=== PATIENT | female | born 2000 | race African-American/Black ===

== ENCOUNTER 2023-11-11 03:48 | Emergency (ER) | payer SELFPAY ==
[~2023-11-11] VITALS: Ht 172.7 cm; Wt 79.5 kg
[2023-11-11 04:00] VITALS: TEMP 97.8
[2023-11-11] MEDS ORDERED: NALOXONE 0.4 MG IV ONE (04:00)
[2023-11-11] MEDS ORDERED: NALOXONE IV ONE (04:00)
[2023-11-11] MEDS ORDERED: Ondansetron 4 MG/2 ML VIAL IV ONE (04:15)
[2023-11-11] MEDS ORDERED: NS 1,000 ML IV ONE ×2 (04:15→05:30)
[2023-11-11 04:22] LABS: BASO % 0.2 % (0.0-2.0); EOS # 0.4 K/mm3 (0.0-0.7); EOS % 3.1 % (0.0-4.0); GRAN # 7.6 K/mm3 (1.4-6.5); GRAN % 61.5 % (42.2-75.2); HEMATOCRIT 42.1 % (37.0-47.0); HEMOGLOBIN 14.1 g/dl (12.5-16.0); LYMPH # 3.5 K/mm3 (1.2-3.4); LYMPH % 28.3 % (20.0-51.0); MEAN CELL VOLUME 88 fl (80.0-100.0); MEAN CORPUSCULAR HEMOGLOBIN 30 pg (27-31); MEAN CORPUSCULAR HGB CONC 34 g/dl (33.0-37.0); MEAN PLATELET VOLUME 9.1 fl (7.4-10.4); MONO # 0.8 K/mm3 (0.1-0.6); MONO % 6.8 % (1.7-9.3); PLATELET COUNT 409 K/mm3 (130-400); RED BLOOD COUNT 4.76 M/mm3 (4.10-5.30); REDCELL DISTRIBUTION WIDTH-CV 13.2 % (11.5-14.5)
[2023-11-11 04:36] LABS: ALANINE AMINOTRANSFERASE 8 U/L (0-55); ALBUMIN 3.9 g/dL (3.5-5.0); ALKALINE PHOSPHATASE 63 U/L (40-150); ANION GAP 12 mmol/L (7-16); AST,SGOT 15 U/L (5-34); BLOOD UREA NITROGEN 7 mg/dL (7-19); CHLORIDE 110 mEq/L (98-107); CREATININE, serum 0.77 mg/dL (0.57-1.11); GLUCOSE 100 mg/dL (70-99); POTASSIUM 3.6 mEq/L (3.5-4.5); SODIUM 141 mEq/L (136-145); TOTAL PROTEIN 7.6 g/dl (6.2-8.1)
[2023-11-11 04:56] LABS: SALICYLATE < 5.0 mg/dL (15.0-30.0)
[2023-11-11 04:59] LABS: COLLECTION METHOD CLEAN CATCH
[2023-11-11] MEDS ORDERED: Naloxone 0.4 MG/ML VIAL IV ONE (05:00)
[2023-11-11 05:07] LABS: PH 6.5 (5.0-8.5); URINE APPEARANCE CLEAR (CLEAR/HAZY); URINE BLOOD NEGATIVE (NEGATIVE); URINE COLOR YELLOW (YELLOW); URINE GLUCOSE NEGATIVE (NEGATIVE); URINE KETONE NEGATIVE (NEGATIVE); URINE NITRATE NEGATIVE (NEGATIVE); URINE PROTEIN(semi-quant) NEGATIVE (NEGATIVE); URINE UROBILINOGEN 0.2 E.U/dL (0.2-1.0)
[2023-11-11 05:11] LABS: ALCOHOL(ethanol),MEDICAL 142 mg/dL (0-10); BILIRUBIN,TOTAL 0.5 mg/dL (0.2-1.2)
[2023-11-11 05:20] LABS: TRICYCLIC ANTIDEPRESS URINE NEGATIVE (NEGATIVE)
[2023-11-11 07:30] VITALS: BP 97/60; PULSE 78
== END 2023-11-11 07:45 | disposition home or self-care (01) ==
LOC: COL.ER 03:48
PROVIDERS: Emergency Medicine
DX: F10.129 Alcohol abuse with intoxication, unspecified (principal); Y90.6 Blood alcohol level of 120-199 mg/100 ml
CPT/HCPCS: J2310; J2405; J7030